=== PATIENT | male | born 1940 | race Native Hawaiian/Other Pacific Islander ===

== ENCOUNTER 2016-06-19 08:33 | Outpatient (CLI) | payer OTHER ==
[~2016-06-19 08:33] MED LIST: ASA LOW STR81 MG PO; DILT-4 PO; FLUT0.05 NAS; GLUCOPHAGE1000 MG PO; LISI20TA11 PO; METF100038 OR; PLAVIX75 MG PO
[2016-06-19 09:16] LABS: PLATELET COUNT 291 K/uL (142-355)
[2016-06-19 09:56] LABS: POTASSIUM 4.2 mmol/L (3.6-5.2); SODIUM 136 mmol/L (136-145)
== END 2016-06-19 19:51 | disposition home or self-care (01) ==
LOC: RAD 08:33
PROVIDERS: Internal Medicine
DX: E11.9 Type 2 diabetes mellitus without complications (principal); M25.552 Pain in left hip; M25.551 Pain in right hip; J44.9 Chronic obstructive pulmonary disease, unspecified; Z85.118 Personal history of other malignant neoplasm of bronchus and lung
CPT/HCPCS: 36415; 80053; 80061; 81000; 83036; 84443; 85027